=== PATIENT | female | born 1980 | race Caucasian/White ===

== ENCOUNTER 2023-03-26 23:34 | Emergency (ER) | payer BC, OTHER ==
[2023-03-27] MEDS ORDERED: Lactated Ringers 1,000 ML IV ONE (00:18)
[2023-03-27] MEDS ORDERED: Promethazine 25 MG/ML SDV IM ONE (01:01)
[2023-03-27] MEDS ORDERED: diphenhydrAMINE 50 MG/ML SDV IM ONE (01:02)
[2023-03-27] MEDS ORDERED: Ketorolac 60 MG/2 ML SDV IM ONE (01:03)
[2023-03-27] MEDS ORDERED: Dexamethasone 10 MG/ML SDV IM ONE (01:04)
[2023-03-27 01:11] LABS: BASOPHILS ABSOLUTE AUTO 0.03 K/mm3 (0.01-0.08); BASOPHILS PERCENT AUTO 0.2 % (0.1-1.2); EOSINOPHILS ABSOLUTE AUTO 0.26 K/mm3 (0.04-0.36); EOSINOPHILS PERCENT AUTO 1.5 (0.7-5.8); HEMATOCRIT 38.9 % (34.1-44.9); HEMOGLOBIN 13.1 gm/dl (11.2-15.7); IMMATURE GRAN ABSOLUTE AUTO 0.03 K/mm3 (0.00-0.10); IMMATURE GRAN PERCENT AUTO 0.2 % (<=1.0); LYMPHOCYTES ABSOLUTE AUTO 3.56 K/mm3 (1.18-3.74); MEAN CORPUSCULAR HEMOGLOBIN 29.6 pg (25.6-32.2); MEAN CORPUSCULAR HGB CONC 33.7 g/dl (32.2-35.5); MEAN CORPUSCULAR VOLUME 87.8 fl (79.4-94.8); MEAN PLATELET VOLUME 8.5 fl (9.4-12.3); MONOCYTES ABSOLUTE AUTO 1.03 K/mm3 (0.24-0.36); MONOCYTES PERCENT AUTO 6.1 % (4.7-12.5); NEUTROPHILS ABSOLUTE AUTO 12.04 K/mm3 (1.56-6.13); PLATELET COUNT,PLT 471 K/mm3 (182-369); RED BLOOD CELL COUNT 4.43 M/mm3 (3.98-5.22); WHITE BLOOD CELL COUNT,WBC 16.95 K/mm3 (3.98-10.04)
[2023-03-27 01:23] LABS: A/G RATIO 1.3 (1-2); ALBUMIN 3.9 g/dl (3.4-5.0); ANION GAP 10.9 (5-15); BILIRUBIN TOTAL 0.3 mg/dL (0.2-1.0); BUN/CREATININE RATIO 8.8 (14-18); CALCIUM 8.7 mg/dL (8.5-10.1); CREATININE 0.8 mg/dL (0.55-1.02); EST CRCL DRUG DOSING (CG) 73.93 mL/min; POTASSIUM,K 3.9 mEq/L (3.5-5.1)
== END 2023-03-27 01:35 | disposition home or self-care (01) ==
LOC: JD.ED 23:34
DX: G44.209 Tension-type headache, unspecified, not intractable (principal); Z86.16 Personal history of COVID-19; Z88.5 Allergy status to narcotic agent; Z72.0 Tobacco use
CPT/HCPCS: 36415; 80053; 84703; 85025; 96372; 99283; J1100; J1200; J1885; J2550

== ENCOUNTER 2024-01-19 18:05 | Emergency (ER) | payer BC, OTHER ==
[2024-01-19] MEDS: methylPREDNISolone Sodium Succinate 125 MG/2 ML SDV IVPUSH ONE (18:37)
[2024-01-19] MEDS: Triamcinolone Acetonide 0.1% Crm 15 GM Tube TOP ONE (18:37)
[2024-01-19] MEDS: diphenhydrAMINE 50 MG/ML SDV IVPUSH ONE (18:37)
[2024-01-19] MEDS: Famotidine 20 MG/2 ML SDV IVPUSH ONE (19:48)
== END 2024-01-19 20:32 | disposition home or self-care (01) ==
LOC: JD.ED 18:05
DX: T78.49XA Other allergy, initial encounter (principal); Z88.5 Allergy status to narcotic agent; Z88.2 Allergy status to sulfonamides; Z79.899 Other long term (current) drug therapy; Z86.16 Personal history of COVID-19; Z86.19 Personal history of other infectious and parasitic diseases
CPT/HCPCS: 96374; 96375; 99283; A9270; J1200; J2930; J3490

== ENCOUNTER 2025-07-17 12:38 | Emergency (ER) | payer OTHER ==
[2025-07-17] MEDS: methylPREDNISolone Sodium Succinate 125 MG/2 ML SDV IVPUSH ONE (13:09)
[2025-07-17] MEDS: diphenhydrAMINE 50 MG/ML SDV IVPUSH ONE (13:09)
== END 2025-07-17 15:25 | disposition home or self-care (01) ==
LOC: JD.ED 12:38
DX: T63.461A Toxic effect of venom of wasps, accidental (unintentional), initial encounter (principal); E78.00 Pure hypercholesterolemia, unspecified; Z86.16 Personal history of COVID-19; F17.210 Nicotine dependence, cigarettes, uncomplicated; Z79.899 Other long term (current) drug therapy; Z91.048 Other nonmedicinal substance allergy status; Z91.018 Allergy to other foods; Z88.8 Allergy status to other drugs, medicaments and biological substances
CPT/HCPCS: 96374; 96375; 99282; A9270; J1200; J1308; J2919; 99284